=== PATIENT | female | born 1980 | race Caucasian/White ===

== ENCOUNTER 2017-01-17 08:45 | Day surgery (SDC) | payer OTHER ==
[~2017-01-17 08:45] MED LIST: ACETAMINOPHEN 0 ML IV ONE; BUPIVACAINE HCL 0.25 % INJ/PF (2.5 MG/1 ML) 30 ML VIAL ONE; EPHEDRINE SULFATE INJ 50 MG/1 ML AMPULE ONE; HYDROMORPHONE HCL INJ/PF 2 MG/ML AMPULE ONE; IBUPROFEN INJ 800 MG/8 ML VIAL IV ONE; MIDAZOLAM 2 MG/2 ML INJ ONE; PROPOFOL INJ 200 MG/20 ML VIAL IV ONE
[2017-01-17] MEDS ORDERED: CEFAZOLIN 1 GM/D5W RTU 1 GM/50 ML RTUPB IV PRN (09:10)
[2017-01-17] MEDS ORDERED: ACETAMINOPHEN 325 MG TABLET PO PRN (09:11)
[2017-01-17] MEDS ORDERED: RINGERS SOLUTION,LACTATED 1,000 ML IV PRN ×2 (09:15→11:31)
[2017-01-17] MEDS ORDERED: MIDAZOLAM 2 MG/2 ML INJ ONE (09:40)
[2017-01-17] MEDS ORDERED: FENTANYL CITRATE INJ/PF 250 MCG/5 ML AMPULE ONE (09:40)
[2017-01-17] MEDS ORDERED: PROPOFOL INJ 200 MG/20 ML VIAL IV ONE (09:41)
[2017-01-17] MEDS ORDERED: ACETAMINOPHEN 100 ML IV ONE (09:41)
[2017-01-17] MEDS ORDERED: FENTANYL CITRATE INJ/PF 100 MCG/2 ML AMPUL IV PRN ×3 (10:50)
[2017-01-17] MEDS ORDERED: MEPERIDINE HCL/PF INJ 25 MG/1 ML DISP.SYRIN IV PRN (10:50)
[2017-01-17] MEDS ORDERED: PROMETHAZINE HCL INJ 25 MG/1 ML VIAL IV PRN ×2 (10:50)
[2017-01-17] MEDS ORDERED: OXYCODONE-ACETAMINOPHEN 5-325 MG TABLET PO PRN ×2 (10:50)
[2017-01-17] MEDS ORDERED: MORPHINE SULFATE 10 MG/ML INJ IV PRN (10:50)
[2017-01-17] MEDS ORDERED: DIPHENHYDRAMINE HCL 50 MG/ML VIAL IV PRN (10:50)
--- NOTE | 2017-01-17 11:37 | PDOC DISCHARGE SUMMARY ---
Discharge Summary (SDC) - Discharge Final Diagnosis: GS with CC Date of Surgery: 01/17/17 Discharge Date: 01/17/17 Condition: Good Treatment or Instructions: [facility] [address], [place] [address] Discharge Instructions: Laparoscopic Surgery 1. General Information: a. DO NOT DRIVE a car or operate dangerous machinery for 3-4 days or while taking narcotic pain pills. b. DO NOT consume alcohol, tranquilizers, sleeping medications or any non- prescribed medications for 24 hours unless approved by your doctor or as long as taking narcotic prescription medications. c. DO NOT make important decisions or sign any important papers for the first 24 hours after surgery. d. When discharged home the same day of surgery have a responsible person with you for the first night. 2. Activity Restrictions: 2 weeks. a. NO heavy lifting, straining abdominal muscles, bending over a lot, yard work, house work, or sports for [address] for 3-4 days or while taking percocet . c. It is fine to go for walks, up and down steps, ride in a car. d. Elevate your head when sleeping/resting. 3. Treatment: a. You may shower 24 hours after surgery, no baths or swimming for 2 weeks. Remove band-aids or dressings before shower but leave paper strips (steri-strips ) on the skin to fall off on their own. If still on at postoperative visit they will be removed then. b. Drainage of fluid or blood is not unusual from an incision. If occurs, you can clean with peroxide and cotton ball daily and cover with dry gauze until the wound seals. c. If a lot of bleeding occurs, you can hold pressure with a gauze or cloth over the site for 10 minutes and it will usually stop. If bleeding continues you will need to call for possible evaluation in office or emergency room. 4. Medications: a. Percocet may be taken for pain as needed, one or two tablets every 4-6 hours. Stop the narcotic when able since you cannot take it and drive, and they cause constipation. You may switch to plain Tylenol, Advil or Aleve as you transition from the narcotic. Many adults find good pain relief with Advil 600- 800 mg three times a day with meals. This can cause indigestion, ulcers, and kidney problems with long-term use. b. You should resume all normal medications unless a change is specified by your doctors. c. Begin with clear liquids and may progress to your normal diet if not nauseated. No high fat, high protein foods the day of surgery. Normal diet 6. The following may occur after laparoscopic surgery: a. Shoulder or upper back ache from retained gas that should resolve in 1-2 days b. Soreness and bruising at incision sites will resolve with time. c. Scrotal swelling (labia in women) and bruising is often seen after hernia surgery. d. Sore throat e. Fatigue may last days to weeks. f. Difficulty urinating may occur and may need to come into emergency room for urinary catheter placement. 7. Notify Physician If: a. Worsening or pain not improved with pain medication b. Persistent nausea and vomiting c. Fever above 101 d. Persistent bleeding or swelling at operative site e. Unable to urinate and uncomfortable bladder 6-8 hours after surgery 8..Follow Up Care: a. Schedule a follow up appointment with your doctor for 2 weeks. In the event of any postoperative problems or questions or you may call the office during business hours or the On-Call physician evenings and weekends at [facility]. [facility] I understand the instructions for my postoperative care as described above and a copy has been given to me. Patient/Significant Other Witness Date Prescriptions: Oxycodone HCl/Acetaminophen [Percocet 5-325 mg Tablet] 1 - 2 tab PO ASDIR PRN # 15 tablet PRN Reason: Discharge Diet: As Tolerated Discharge Activity: Activity As Tolerated Report the Following to Your Physician Immediately: Shortness of Breath, Increase in Pain, Fever over 101 Degrees
--- NOTE | 2017-01-17 12:03 | OPERATIVE REPORT E ---
Operative Report NAME: JEWEL AGGARWAL : 1980 AGE: 36Y DATE OF SURGERY: ROOM: PREOPERATIVE DIAGNOSIS: Symptomatic cholelithiasis with cholecystitis. POSTOPERATIVE DIAGNOSIS: Symptomatic cholelithiasis with cholecystitis. OPERATION: Laparoscopic cholecystectomy. SURGEON: LUPILLO HOPKINS M.D. [employer]ECTIVE [employer]: Swathi Urrutia ANESTHESIA: General via endotracheal tube. COMPLICATIONS: None. ESTIMATED BLOOD LOSS: Minimal. DRAINS: None. TISSUE REMOVED OR ALTERED: Gallbladder with contents. PROCEDURE: The patient was taken from the preop holding area to the main operating room where general anesthesia was induced. The arms were abducted, the abdomen was exposed, prepped and draped in sterile fashion. Surgical planning and a surgical timeout were conducted. A supraumbilical vertical incision was made with a knife. A Veress needle was inserted into the peritoneal cavity and a pneumoperitoneum was established. The Veress needle was removed and a 5-mm port was inserted. A 5-mm viewing scope was also inserted. Under direct visualization, 3 additional ports were placed, 2 in the subcostal position and 1 in the subxiphoid position. Findings were significant for generous adhesions between the gallbladder and the hepatoduodenal region and these were taken down using a combination of sharp, blunt and electrocautery dissection, all under direct visualization. Eventually, we had the gallbladder suspended with graspers from the liver. The gallbladder had a very long neck. The neck was dissected out but it was tortuous. Again, adhesions were dense but filmy and nicely. At this point, I felt that a top down approach would facilitate the dissection and so graspers were repositioned and we took the gallbladder down completely from the body down to the infundibulum, eventually having the gallbladder suspended by its neck, with the cystic artery still intact. The cystic artery was surrounded with a right angle clamp, clipped twice proximal and once distally and divided with scissors. Now, the gallbladder was suspended solely from its neck. The cystic duct again was elongated and tortuous and at this point, somewhat foreshortened and I did not feel further dissection to a more proximal anatomic point was appropriate, so we elected to amputate the gallbladder along the tapering neck going into the cystic duct. A PDS 2-0 loop suture was then placed around the neck of the gallbladder and secured. I opened up the cystic duct with scissors to ensure there was no sludge and there was none. There was nice free flow of bile. A second PDS Endoloop was used to secure the cystic duct proximally. The cystic duct was then divided with scissors. The gallbladder was removed from the patient through the supraumbilical port site. We returned to the peritoneal cavity to check for bleeding or bile leak and there was none. We were confident our clips were in good position. Photos were taken. At this point, we felt the operation was complete. Sponge and needle counts were correct. All ports were removed under direct visualization. The pneumoperitoneum was evacuated and the wounds were closed with 0 Vicryl, 3-0 Vicryl, Benzoin and Steri-Strips. The patient tolerated the procedure well, was extubated and taken to the recovery room in stable condition. DICTATING PHYSICIAN: LUPILLO HOPKINS M.D. [id number] PHY#: [id number] ID: [id number] JOB#: [id number] ACCT: [id number] cc:LUPILLO HOPKINS M.D. >
[2017-01-17] MEDS ORDERED: ONDANSETRON HCL INJ/PF 4 MG/2 ML SDV ONE ×2 (12:09→12:24)
[2017-01-17] MEDS ORDERED: ROCURONIUM BROMIDE INJ 50 MG/5 ML VIAL IV ONE (12:09)
[2017-01-17] MEDS ORDERED: LIDOCAINE 2% INJ-PF (20 MG/ML) 10 ML AMPUL ONE (12:09)
[2017-01-17] MEDS ORDERED: DEXAMETHASONE SOD PHOSPHATE INJ 4 MG/1 ML VIAL ONE (12:09)
[2017-01-17] MEDS ORDERED: KETOROLAC TROMETHAMINE 60 MG/2 ML SDV ONE (12:09)
[2017-01-17] MEDS ORDERED: SUCCINYLCHOLINE CHLORIDE INJ 200 MG/10 ML VIAL ONE (12:09)
[2017-01-17 14:20] VITALS: BP 106/71
== END 2017-01-17 14:30 | disposition home or self-care (01) ==
LOC: OROUT 08:45
PROVIDERS: ATTEND Surgery
PROC: 0FT44ZZ Resection of Gallbladder, Percutaneous Endoscopic Approach (ICD-10-PCS; principal; 2017-01-17 11:00)
DX: K80.10 Calculus of gallbladder with chronic cholecystitis without obstruction (principal); K21.9 Gastro-esophageal reflux disease without esophagitis; Z87.891 Personal history of nicotine dependence; Z79.899 Other long term (current) drug therapy
CPT/HCPCS: 81025; 88304 ×2; 47562; J2250; J0690; J3490 ×2; J1100; J1885; J3010; J0330; J2405; J2704; J0131; 790; J1170; J1741